=== PATIENT | female | born 1995 | race African-American/Black ===

== ENCOUNTER 2020-09-03 13:58 | Emergency (ER) | payer MEDICAID, OTHER ==
[~2020-09-03] VITALS: Ht 167.6 cm; Wt 64.0 kg
[2020-09-03] MEDS ORDERED: HYDROCODONE/ACETAMINOPHEN 5/325MG TABLET PO ONE (14:45)
[2020-09-03] MEDS ORDERED: KETOROLAC 30MG/ML VIAL IM ONE (17:45)
[2020-09-03 18:42] VITALS: BP 128/78
== END 2020-09-03 18:43 | disposition home or self-care (01) ==
LOC: ER 14:32
DX: S50.12XA Contusion of left forearm, initial encounter (principal); M25.572 Pain in left ankle and joints of left foot; F14.10 Cocaine abuse, uncomplicated; F12.10 Cannabis abuse, uncomplicated; V49.88XA Car occupant (driver) (passenger) injured in other specified transport accidents, initial encounter; Y93.89 Activity, other specified; Y92.89 Other specified places as the place of occurrence of the external cause; Y99.8 Other external cause status
CPT/HCPCS: 29515; 73080; 73610; 96372; 99284; J1885

== ENCOUNTER 2020-09-06 11:18 | Emergency (ER) | payer MEDICAID ==
[~2020-09-06] VITALS: Ht 162.6 cm; Wt 57.0 kg
[2020-09-06] MEDS ORDERED: HYDROCODONE/ACETAMINOPHEN 5/325MG TABLET PO ONE (12:45)
[2020-09-06 16:15] VITALS: BP 110/66
== END 2020-09-06 16:18 | disposition home or self-care (01) ==
LOC: ER 11:18
DX: M79.672 Pain in left foot (principal); M79.89 Other specified soft tissue disorders; I10 Essential (primary) hypertension; F14.10 Cocaine abuse, uncomplicated; F12.10 Cannabis abuse, uncomplicated
CPT/HCPCS: 73630; 81025; 93971; 99284

== ENCOUNTER 2020-09-10 22:53 | Emergency (ER) | payer MEDICAID ==
[~2020-09-10] VITALS: Ht 162.6 cm; Wt 55.0 kg
[2020-09-11] MEDS: IBUPROFEN 600MG TABLET PO ONE (01:13)
[2020-09-11 01:48] VITALS: BP 143/93
== END 2020-09-11 01:49 | disposition home or self-care (01) ==
LOC: ER 22:53
DX: S90.522A Blister (nonthermal), left ankle, initial encounter (principal); F14.10 Cocaine abuse, uncomplicated; F12.10 Cannabis abuse, uncomplicated; Z76.0 Encounter for issue of repeat prescription; V89.2XXA Person injured in unspecified motor-vehicle accident, traffic, initial encounter; Y93.89 Activity, other specified; Y92.89 Other specified places as the place of occurrence of the external cause; Y99.8 Other external cause status
CPT/HCPCS: 99283